=== PATIENT | male | born 1975 ===

== ENCOUNTER 2021-05-11 11:00 | Observation (INO) ==
[2021-05-11] MEDS ORDERED: *HR* HYDROmorphone PF 0.5 MG/0.5 ML SYRINGE IVP PRN (12:10)
[2021-05-11] MEDS ORDERED: Famotidine 20 MG/2 ML VIAL IVP ONE (12:10)
[2021-05-11] MEDS ORDERED: Ondansetron 4 MG/2 ML VIAL IVP PRN (12:10)
[2021-05-11] MEDS ORDERED: *HR* OxyCODONE Immed Rel 5 MG TABLET PO PRN (12:10)
[2021-05-11] MEDS ORDERED: CeFAZolin Syr 2,000MG/20 ML 2,000 MG/20 ML SYRINGE IVPB ONE (12:14)
[2021-05-11] MEDS ORDERED: Ringers Solution, Lactated 1,000 ML IVC SCH ×2 (12:15→15:00)
[2021-05-11] MEDS ORDERED: *HR* FentaNYL (PF) 100 MCG/2 ML VIAL ONE (12:49)
[2021-05-11] MEDS ORDERED: *HR* Midazolam HCl 2 MG/2 ML VIAL ONE (12:50)
[2021-05-11] MEDS ORDERED: *HR* Propofol 200 MG/20 ML VIAL IVP ONE (12:50)
[2021-05-11] MEDS ORDERED: Ondansetron 4 MG/2 ML VIAL ONE (12:53)
[2021-05-11] MEDS ORDERED: *HR* Succinylcholine 200 MG/10 ML VIAL IVP ONE (12:53)
[2021-05-11] MEDS ORDERED: Lidocaine HCL 4 ML Topical Solution (Laryng-O-Jet Kit Sterile Pak) TP ONE (12:53)
[2021-05-11] MEDS ORDERED: Lidocaine -MPF 2% 2 ML VIAL ONE ×2 (12:53→17:56)
[2021-05-11] MEDS ORDERED: Acetaminophen 325 MG TABLET PO PRN (14:54)
[2021-05-11] MEDS ORDERED: *HR* Rocuronium Bromide 50 MG/5 ML VIAL ONE (15:05)
[2021-05-11] MEDS ORDERED: Bupivacaine/EPI 1:200k 0.25% 50 ML VIAL ONE (15:14)
[2021-05-11] MEDS ORDERED: Ketorolac 30 MG/ML VIAL ONE (16:04)
[2021-05-11] MEDS ORDERED: *HR* HYDROMORPHONE 2 MG/ML VIAL ONE (16:11)
[2021-05-11] MEDS ORDERED: *HR* Metoprolol 5 MG/5 ML VIAL IVP ONE (16:11)
[2021-05-11] MEDS: *HR* OxyCODONE Immed Rel 5 MG TABLET PO PRN (16:46)
[2021-05-11] MEDS: CeFAZolin 2,000 MG/120 ML BAG IVPB SCH (17:44)
[2021-05-11] MEDS: Vancomycin 1,500 MG/265 ML IV.SOLN IVPB SCH (19:25)
[2021-05-11] MEDS: Ibuprofen 400 MG TABLET PO PRN (19:30)
[2021-05-12] MEDS: CeFAZolin 2,000 MG/120 ML BAG IVPB SCH ×2 (00:31→08:48)
[2021-05-12] MEDS: *HR* OxyCODONE Immed Rel 5 MG TABLET PO PRN ×2 (00:43→08:47)
[2021-05-12] MEDS: Vancomycin 1,500 MG/265 ML IV.SOLN IVPB SCH (05:08)
[2021-05-12 07:07] VITALS: TEMP 97.9
[2021-05-12 11:12] VITALS: BP 132/72; PULSE 100; O2SAT 100
[2021-05-12] MEDS: Ibuprofen 400 MG TABLET PO PRN (11:28)
== END 2021-05-12 13:39 | disposition home or self-care (01) ==
LOC: SDCAOSI 11:00 → 3BNU 11:00
PROVIDERS: ADMIT Orthopaedic Surgery; ATTEND Orthopaedic Surgery